=== PATIENT | female | born 1980 ===

== ENCOUNTER 2019-08-28 10:54 | Inpatient (IN) | payer OTHER ==
[~2019-08-28] VITALS: Ht 157.5 cm; Wt 3.2 kg
[2019-09-25] MEDS ORDERED: PRENATAL CAPLE1 EAC1 PO (16:16)
[2019-09-25] MEDS ORDERED: IRON325 MG PO (16:16)
== END 2019-09-29 13:00 | disposition home or self-care (01) | DRG 788 ==
LOC: OB/GYN → LDR 09-25 15:29 → O/R 09-26 13:10 → OB/GYN 09-26 13:29
PROVIDERS: Obstetrics & Gynecology; ADMIT Obstetrics & Gynecology Maternal & Fetal Medicine; ATTEND Obstetrics & Gynecology Maternal & Fetal Medicine
PROC: 4A1HXCZ Monitoring of Products of Conception, Cardiac Rate, External Approach (ICD-10-PCS; 2019-09-25)
PROC: 0UB90ZZ Excision of Uterus, Open Approach (ICD-10-PCS; 2019-09-26)
PROC: 10D00Z1 Extraction of Products of Conception, Low, Open Approach (ICD-10-PCS; principal; 2019-09-26 11:00)
DX: O65.5 Obstructed labor due to abnormality of maternal pelvic organs (principal); O48.0 Post-term pregnancy; Z3A.40 40 weeks gestation of pregnancy; O34.13 Maternal care for benign tumor of corpus uteri, third trimester; D25.9 Leiomyoma of uterus, unspecified; Z37.0 Single live birth; Z20.828 Contact with and (suspected) exposure to other viral communicable diseases

== ENCOUNTER → 2019-09-21 | Outpatient (CLI) | payer OTHER ==
[~2019-09-21] MED LIST: IRON325 MG PO; PRENATAL CAPLE1 EAC1 PO
== END | disposition home or self-care (01) ==
LOC: NST 14:34
PROVIDERS: ATTEND Obstetrics & Gynecology
DX: Z34.83 Encounter for supervision of other normal pregnancy, third trimester (principal)